=== PATIENT | male | born 1980 | race Two or more races ===

== ENCOUNTER 2022-04-25 09:21 | Emergency (ER) | payer OTHER ==
[~2022-04-25] VITALS: Ht 180.3 cm; Wt 118.0 kg
[2022-04-25 10:12] VITALS: BP 150/102
[2022-04-25] MEDS ORDERED: CYCL-837 PO (10:27)
[2022-04-25] MEDS ORDERED: IBUP800T27 PO (10:27)
[2022-04-25] MEDS ORDERED: KETOROLAC TROMETH 60MG/2ML VIAL IM ONE (10:30)
== END 2022-04-25 10:52 | disposition home or self-care (01) ==
LOC: ER 09:21
DX: S39.012A Strain of muscle, fascia and tendon of lower back, initial encounter (principal); M54.41 Lumbago with sciatica, right side; I10 Essential (primary) hypertension; Z79.1 Long term (current) use of non-steroidal anti-inflammatories (NSAID); Z79.899 Other long term (current) drug therapy; X58.XXXA Exposure to other specified factors, initial encounter; Y93.89 Activity, other specified; Y92.89 Other specified places as the place of occurrence of the external cause; Y99.8 Other external cause status
CPT/HCPCS: 96372; 99283; J1885